=== PATIENT | female | born 1935 | race Caucasian/White ===

== ENCOUNTER 2018-02-02 07:08 | Day surgery (SDC) | payer MEDICARE ==
[2018-02-02] VITALS (15 sets, daily range): BP systolic 101–140; BP diastolic 44–91
[~2018-02-02] VITALS: Ht 152.4 cm; Wt 55.0 kg
[~2018-02-02 07:08] MED LIST: CELE200C PO; ESTR0.5T PO; LANS30CA37 PO; LEVO125T8 PO; LIDOCAINE 4% (40MG/ML) topical solution 50ml **BRONCH ONLY ONE; TRAM50TA2 PO; epiNEPHrine 1 MG/ML 1 ml ampule **BRONCH ONLY ONE; lidocaine 2% viscous 15 ML cup ***bronch room only MM ONE; phenylephrine 1% Nasal spray (extra-strength) 15 ML bottle **bronch room NS ONE
[2018-02-02] MEDS ORDERED: LIDOcaine 4% (40 mg/ml) topical solution 50ml TP ONE (07:50)
[2018-02-02] MEDS ORDERED: epiNEPHrine 1 mg/ml inj SQ ONE (07:50)
[2018-02-02] MEDS ORDERED: phenylephrine 1% (X-tra strg) 15ml nasal spray NS ONE (07:50)
[2018-02-02] MEDS ORDERED: morphine 4 MG/ML inj SYRINge IM PRN (07:50)
[2018-02-02] MEDS ORDERED: LIDOcaine Viscous 15ml cup MM ONE (07:50)
[2018-02-02] MEDS ORDERED: DAPS25TA2 PO (08:54)
[2018-02-02] MEDS ORDERED: MELA3TAB PO (08:54)
[2018-02-02] MEDS ORDERED: CLOP75TA15 PO (08:54)
[2018-02-02] MEDS ORDERED: ATOR20TA PO (08:54)
[2018-02-02] MEDS ORDERED: OMEP40CA37 PO (08:54)
[2018-02-02] MEDS ORDERED: BIOT1TAB PO (08:54)
[2018-02-02] MEDS ORDERED: ASPI81TA52 PO (08:54)
[2018-02-02] MEDS ORDERED: [UNRECOGNIZED DRUG - OTHER] PO (08:57)
== END 2018-02-02 11:25 | disposition home or self-care (01) ==
LOC: SSTAY O 07:08
PROVIDERS: ATTEND Internal Medicine Pulmonary Disease
DX: J42 Unspecified chronic bronchitis (principal); J20.9 Acute bronchitis, unspecified; B48.8 Other specified mycoses; K21.9 Gastro-esophageal reflux disease without esophagitis; M19.90 Unspecified osteoarthritis, unspecified site; I25.10 Atherosclerotic heart disease of native coronary artery without angina pectoris; I25.2 Old myocardial infarction; Z86.19 Personal history of other infectious and parasitic diseases; Z90.710 Acquired absence of both cervix and uterus; Z86.14 Personal history of Methicillin resistant Staphylococcus aureus infection; Z88.2 Allergy status to sulfonamides; Z88.8 Allergy status to other drugs, medicaments and biological substances; Z79.2 Long term (current) use of antibiotics; Z79.82 Long term (current) use of aspirin; Z79.891 Long term (current) use of opiate analgesic; Z98.890 Other specified postprocedural states; Z79.899 Other long term (current) drug therapy
CPT/HCPCS: 31622; 36415; 76499; 87015; 87070; 87077; 87102; 87116; 87185; 87206; 94640; J2270; J7030; 88104; 88305; 88312; J0171

== ENCOUNTER 2020-05-13 10:25 | Emergency (ER) | payer MEDICARE ==
[~2020-05-13] VITALS: Ht 152.4 cm; Wt 47.1 kg
[~2020-05-13 10:25] MED LIST changes: +ASPI81TA52 PO; +ATOR20TA PO; +BIOT1TAB PO; +CLOP75TA15 PO; +DAPS25TA2 PO; -LANS30CA37 PO; -LIDOCAINE 4% (40MG/ML) topical solution 50ml **BRONCH ONLY ONE; +MELA3TAB39 PO; +OMEP40CA13 PO; +[UNRECOGNIZED DRUG - OTHER] PO; -epiNEPHrine 1 MG/ML 1 ml ampule **BRONCH ONLY ONE; -lidocaine 2% viscous 15 ML cup ***bronch room only MM ONE; -phenylephrine 1% Nasal spray (extra-strength) 15 ML bottle **bronch room NS ONE
[2020-05-13 12:16] VITALS: BP 133/68
[2020-05-13 12:26] LABS: BASOPHILS % (AUTO) 0.7 % (0-1); EOSINOPHILS # (AUTO) 0.3 X10'3 (0-0.9); EOSINOPHILS % (AUTO) 4.8 % (0-6); HEMATOCRIT 40.2 % (35.0-45.0); HEMOGLOBIN 13.2 g/dl (12.0-16.0); LYMPHOCYTES # (AUTO) 1.2 X10'3 (1.1-4.8); LYMPHOCYTES % (AUTO) 19.3 % (21-51); MEAN CORPUSCULAR HEMOGLOBIN 28.3 PG (27.0-31.0); MEAN CORPUSCULAR HGB CONC 32.8 g/dL (33.0-36.5); MEAN CORPUSCULAR VOLUME 86.2 FL (78-98); MEAN PLATELET VOLUME 8.2 FL (7.4-10.4); MONOCYTES # (AUTO) 0.5 X10'3 (0-0.9); MONOCYTES % (AUTO) 8.4 % (2-12); NEUTROPHILS # (AUTO) 4.2 X10'3 (1.8-7.7); NEUTROPHILS % (AUTO) 66.8 % (42-75); PLATELET COUNT 216 X10'3 (140-440); RED BLOOD COUNT 4.66 X10'6 (4.20-5.60); WHITE BLOOD COUNT 6.4 X10'3 (4.5-11.0)
[2020-05-13 12:49] LABS: ALANINE AMINOTRANSFERASE 22 U/L (12-78); ALBUMIN 3.5 G/DL (3.4-5.0); ALBUMIN/GLOBULIN RATIO 0.8 (1.1-1.5); ALKALINE PHOSPHATASE 87 IU/L (46-116); ANION GAP 9 (8-16); ASPARTATE AMINO TRANSFERASE 27 U/L (10-37); BILIRUBIN,TOTAL 0.4 MG/DL (0.1-1.0); BLOOD UREA NITROGEN 18 MG/DL (7-18); BUN/CREATININE RATIO 17.1 (6.6-38.0); CALCIUM 9.6 MG/DL (8.5-10.1); CHLORIDE 102 MMOL/L (99-107); CREATININE 1.05 MG/DL (0.40-0.90); GLUCOSE 86 MG/DL (70-104); SODIUM 137 MMOL/L (135-145); TOTAL CARBON DIOXIDE 26.3 MMOL/L (24-32); TOTAL PROTEIN 8.1 G/DL (6.4-8.2); eGFR 50 ML/MIN
[2020-05-13] MEDS ORDERED: AZIT250T82 PO (13:30)
[2020-05-13] MEDS ORDERED: ALBU8.5H8 INH (13:30)
== END 2020-05-13 14:35 | disposition home or self-care (01) ==
LOC: ER 10:26
DX: R06.02 Shortness of breath (principal); R05 Cough; R53.83 Other fatigue; Z88.2 Allergy status to sulfonamides; Z88.8 Allergy status to other drugs, medicaments and biological substances; Z79.82 Long term (current) use of aspirin; Z79.2 Long term (current) use of antibiotics; Z79.899 Other long term (current) drug therapy
CPT/HCPCS: 36415; 71045; 80053; 83880; 84145; 84484; 85025; 87635; 93005; 99285